=== PATIENT | male | born 1985 ===

== ENCOUNTER 2017-02-25 20:56 | Emergency (ER) | payer SELFPAY ==
[2017-02-25 21:06] VITALS: BP 110/70; RESP 16; O2SAT 100
--- NOTE | 2017-02-25 21:13 | ED PDOC ---
HPI: General Adult Time Seen by Provider: 02/25/17 21:13 Chief Complaint (Nursing): Flu-like Symptoms Chief Complaint (Provider): sore throat, eye pain History Per: Patient Additional Complaint(s): 31-year-old male presents with fever, sore throat and discharge from left eye 2 days. Patient thinks that he became sick after swimming at the beach a couple of days ago. Patient has not taken any medication for the fever. He also complains of dry cough. No nausea or vomiting, no headache, no acute vision changes. Patient does not wear contact lenses or glasses. Patient is tolerating liquids and solids but has pain when swallowing. Past Medical History Reviewed: Historical Data, Nursing Documentation, Vital Signs Vital Signs: Last Vital Signs Temp 99.7 F H 02/25/17 23:03 Pulse 84 02/25/17 22:41 Resp 16 02/25/17 21:03 BP 110/70 02/25/17 21:03 Pulse Ox 100 02/25/17 22:57 - Medical History PMH: No Chronic Diseases - Surgical History Surgical History: No Surg Hx - Family History Family History: States: No Known Family Hx - Living Arrangements Living Arrangements: With Family - Social History Current smoker - smoking cessation education provided: No Alcohol: None Drugs: Denies - Home Medications Home Medications: Ambulatory Orders Medication Instructions Recorded Azithromycin [Zithromax] 250 mg PO DAILY #6 tab 02/25/17 Tobramycin [Tobrex] 5 ml TOP QID #1 bottle 02/25/17 - Allergies Allergies/Adverse Reactions: Allergies Allergy/AdvReac Type Severity Reaction Status Date / Time No Known Allergies Allergy Verified 02/25/17 21:06 Review of Systems ROS Statement: Except As Marked, All Systems Reviewed And Found Negative Constitutional: Positive for: Fever, Chills Eyes: Positive for: Conjunctivae Inflammation (left eye, with discharge) ENT: Positive for: Throat Pain, Throat Swelling Cardiovascular: Negative for: Chest Pain Respiratory: Positive for: Cough (dry) Gastrointestinal: Negative for: Nausea, Vomiting Genitourinary Male: Negative for: Dysuria Neurological: Negative for: Headache, Dizziness Physical Exam - Reviewed Nursing Documentation Reviewed: Yes Vital Signs Reviewed: Yes - Physical Exam Appears: Positive for: Well, Non-toxic, No Acute Distress Skin: Negative for: Rash Eye Exam: Positive for: Other (Moderate conjunctival injection noted to left eye with yellow purulent discharge, no gross foreign body, no periorbital swelling or cellulitis, right eye is normal) ENT: Positive for: TM Is/Are (normal bilaterally), Pharyngeal Erythema, Tonsillar Exudate, Tonsillar Swelling. Negative for: Nasal Congestion Neck: Positive for: Normal Cardiovascular/Chest: Positive for: Regular Rate, Rhythm Respiratory: Positive for: Normal Breath Sounds. Negative for: Rhonchi, Wheezing, Respiratory Distress Gastrointestinal/Abdominal: Positive for: Soft. Negative for: Tenderness Neurologic/Psych: Positive for: Alert, Oriented - ECG O2 Sat by Pulse Oximetry: 100 Pulse Ox Interpretation: Normal - Other Rad CXR X-Ray: Interpreted by Me, Viewed By Me X-Ray Interpretation: no acute finding Medical Decision Making Medical Decision Makin31 year old with fever, sore throat and eye discharge. Patient is febrile upon arrival, well appearing, non-toxic appearing Plan: PO motrin and tylenol for fever Rapid strep and throat culture Flu swab CXR Rapid strep and flu are negative Repeat temp: 99.7 Repeat HR: 84 Prescription given for Zithromax to treat pharyngitis/tonsillitis. Prescription also given for tobramycin eyedrops for conjunctivitis. He was struck to to continue with Tylenol and Motrin for fever, to rest and drink plenty of fluids. He was referred to clinic for follow-up in 2-3 days. Disposition - Clinical Impression Clinical Impression: Pharyngitis, Tonsillitis, Conjunctivitis - Patient ED Disposition Is Patient to be Admitted: No Counseled Patient/Family Regarding: Studies Performed, Diagnosis, Need For Followup, Rx Given - Disposition [facility] Disposition: Routine/Home Disposition Time: 22:55 Condition: STABLE Additional Instructions: Take prescription meds as directed. Take over the counter motrin and tylenol for fever control. Rest and drink plenty of fluids. Follow-up with clinic or primary doctor in 2-3 days. Prescriptions: Azithromycin [Zithromax] 250 mg PO DAILY #6 tab Tobramycin [Tobrex] 5 ml TOP QID #1 bottle Instructions: Pharyngitis (ED), Tonsillitis (ED), Conjunctivitis (ED) Print Language: [place]
[2017-02-25] MEDS ORDERED: Dexamethasone 4 mg/1 ml IM STA (21:22)
[2017-02-25 22:41] VITALS: PULSE 84
[2017-02-25 23:04] VITALS: TEMP 99.7
--- NOTE | 2017-02-26 08:25 | RAD ---
HISTORY: cough COMPARISON: No prior. TECHNIQUE: Chest PA and lateral FINDINGS: LUNGS: No active pulmonary disease. PLEURA: No significant pleural effusion identified. No pneumothorax apparent. CARDIOVASCULAR: Normal. OSSEOUS STRUCTURES: No significant abnormalities. VISUALIZED UPPER ABDOMEN: Normal. OTHER FINDINGS: None. IMPRESSION: No active disease.
== END 2017-02-25 22:57 | disposition home or self-care (01) ==
LOC: H.ER 20:56
DX: H10.9 Unspecified conjunctivitis (principal); J03.90 Acute tonsillitis, unspecified; R05 Cough
CPT/HCPCS: 71020; 87070; 87430; 87804; 96372; 99282; J1100